=== PATIENT | male | born 1980 | race Two or more races ===

== ENCOUNTER 2017-09-06 16:11 | Emergency (ER) | payer OTHER ==
[2017-09-06] MEDS ORDERED: LIDOCAINE/EPI/TETRACAINE TOPICAL GEL 3 ML. TP (16:30)
[2017-09-06] MEDS: HYDROcodone/APAP 5/325MG 1 TAB TABLET PO (16:43)
[2017-09-06] MEDS: LIDOCAINE WITH 8.4% SOD BICARB 3 ML DISP.SYRIN. INJ (17:00)
== END 2017-09-06 17:59 | disposition home or self-care (01) ==
LOC: ER 16:11
DX: S81.812A Laceration without foreign body, left lower leg, initial encounter (principal); W01.118A Fall on same level from slipping, tripping and stumbling with subsequent striking against other sharp object, initial encounter; Y93.89 Activity, other specified; Y92.69 Other specified industrial and construction area as the place of occurrence of the external cause; Y99.8 Other external cause status
CPT/HCPCS: 12002; 73590; 99284

== ENCOUNTER 2017-09-13 15:57 | Emergency (ER) | payer OTHER | END 2017-09-13 16:25 | disposition home or self-care (01) | LOC: ER 15:57 | DX: S81.812D Laceration without foreign body, left lower leg, subsequent encounter (principal); X58.XXXD Exposure to other specified factors, subsequent encounter | CPT/HCPCS: 99281 ==